=== PATIENT | male | born 1990 | race Caucasian/White ===

== ENCOUNTER 2018-07-26 16:17 | Emergency (ER) | payer OTHER ==
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
[2018-07-26 16:29] VITALS: BP 103/55; PULSE 85; TEMP 98.4; BMI 29.0
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
== END 2018-07-26 18:53 | disposition home or self-care (01) ==
LOC: EDBD 16:17 → JERFT 16:17
DX: S80.02XA Contusion of left knee, initial encounter (principal); M25.562 Pain in left knee; V03.19XA Pedestrian with other conveyance injured in collision with car, pick-up truck or van in traffic accident, initial encounter; Y99.0 Civilian activity done for income or pay; Y93.89 Activity, other specified; Y92.89 Other specified places as the place of occurrence of the external cause
CPT/HCPCS: 73562-TC-LT-FY; 99281-25

== ENCOUNTER 2024-02-12 16:13 | Emergency (ER) | payer BC, OTHER ==
[2024-02-12 16:16] VITALS: BP 123/78; PULSE 78; RESP 18; TEMP 98.4; BMI 34.7
[2024-02-12] MEDS: BACITRACIN ZINC 15 GM TUBE TOPICAL OINTMENT TP ONE (16:41)
[2024-02-12] MEDS: DIPHTH,PERTUSS(ACELL),TET 0.5 ML DISP.SYRIN IM ONE (16:41)
[2024-02-12] MEDS ORDERED: BACITRACIN ZINC 15 GM TUBE TOPICAL OINTMENT ONE (16:42)
[2024-02-12] MEDS ORDERED: DIPHTH,PERTUSS(ACELL),TET 0.5 ML DISP.SYRIN IM ONE (16:42)
== END 2024-02-12 16:56 | disposition home or self-care (01) ==
LOC: JERFT 16:13
PROC: 3E0234Z Introduction of Serum, Toxoid and Vaccine into Muscle, Percutaneous Approach (ICD-10-PCS; principal; 2024-02-12)
DX: S01.81XA Laceration without foreign body of other part of head, initial encounter (principal); W26.8XXA Contact with other sharp object(s), not elsewhere classified, initial encounter
CPT/HCPCS: 90715; 99284-25